=== PATIENT | male | born 1970 | race Caucasian/White ===

== ENCOUNTER 2019-04-03 08:37 | Inpatient (IN) ==
[2019-04-03 09:13] LABS: Eosinophils % 2.3 %
[2019-04-03 09:15] LABS: Basophils # 0.1 K/mcL (0.0-0.2); Basophils % 0.8 %; Eosinophils # 0.3 K/mcL (0.0-0.6); Hematocrit 51.3 % (37.5-50.1); Hemoglobin 14.8 g/dL (12.9-16.9); Immature Granulocytes % 0.5 % (0-4); Lymphocytes # 1.3 K/mcL (0.6-4.6); Mean Corpuscular HGB Conc 28.8 g/dL (31.6-35.5); Mean Corpuscular Hemoglobin 24.3 pg (28.0-33.3); Mean Corpuscular Volume 84.4 fL (83.0-100.0); Mean Platelet Volume 9.1 fL (9.4-12.4); Monocytes # 0.8 K/mcL (0.0-1.3); Monocytes % 7.4 %; Nucleated Red Blood Cells 1.5 /100 WBC (0); Platelet Count 373 K/mcL (140-400); Red Blood Count 6.08 M/mcL (4.19-5.50); Red Cell Distribution Width 18.1 % (11.5-14.5); White Blood Count 11.1 K/mcL (4.3-11.1)
[2019-04-03 09:17] LABS: Neutrophils # 8.6 K/mcL (1.6-8.9)
[2019-04-03] MEDS ORDERED: Nitroglycerin 0.4 MG TAB.SUBL SL PRN (09:28)
[2019-04-03] MEDS ORDERED: Furosemide 40 MG/4 ML VIAL IVP ONE (09:28)
[2019-04-03 09:34] LABS: Calcium 8.6 mg/dL (8.6-10.3); Potassium 4.6 mEq/L (3.5-5.1); Troponin I 0.03 ng/mL (< 0.04)
[2019-04-03 09:36] LABS: Anisocytosis 1+ (Not Present)
[2019-04-03] MEDS ORDERED: Aspirin 81 MG TAB.CHEW PO STA (09:40)
[2019-04-03] MEDS ORDERED: Isovue-370 500 ML BOTTLE IVP ONE (09:45)
[2019-04-03 09:51] LABS: Bilirubin,Urine Negative (Negative); Blood,Urine Negative (Negative); Clarity,Urine Clear (Clear); Color,Urine Yellow (Yellow); Glucose,Urine (UA) Normal (Normal); Ketones,Urine Negative (Negative); Leukocyte Esterase,Urine Negative (Negative); Nitrite,Urine Negative (Negative); Protein,Urine 30 mg/dL (Neg-Trace); Urobilinogen,Urine Normal (Normal)
[2019-04-03] MEDS ORDERED: *HR* Midazolam HCl 5 MG/5 ML VIAL IVP ONE (09:53)
[2019-04-03] MEDS ORDERED: *HR* Etomidate 40 MG/20 ML VIAL IVP ONE (09:53)
[2019-04-03] MEDS ORDERED: *HR* Midazolam HCl 2 MG/2 ML VIAL IV ONE (09:53)
[2019-04-03 09:54] LABS: Bacteria,Urine None Seen per hpf (None-Few); Hyaline Casts,Urine None Seen per lpf (None-Few); RBC,Urine 0-3 per hpf (0-3); Squamous Epithelial Cell,Urine Moderate per lpf (None-Few); WBC,Urine 0-3 per hpf (0-3)
[2019-04-03 10:10] LABS: Magnesium 2.4 mg/dL (1.6-2.6)
[2019-04-03] MEDS ORDERED: Naloxone 0.4 MG/ML INJ IVP PRN (11:52)
[2019-04-03 12:19] LABS: ABG Base Excess 3 mEq/L (-2 to 3); ABG HCO3 37 mEq/L (21-27); ABG Oxygen Saturation 95 % (95-98); ABG PCO2 101 mmHg (35-45); ABG PH 7.17 pH Units (7.32-7.45); ABG PO2 99 mmHg (85-104); ABG TCO2 40 mEq/L (20-26)
[2019-04-03] MEDS: MethylPREDNISolone 40 MG/ML VIAL IVP SCH ×2 (13:03→17:16)
[2019-04-03] MEDS: Azithromycin 250 MG TABLET PO SCH (13:03)
[2019-04-03] MEDS: Ipratropium/Albuterol Neb 3 ML IH SCH ×3 (14:59→23:40)
[2019-04-03 16:16] LABS: ABG Base Excess 1 mEq/L (-2 to 3); ABG HCO3 36 mEq/L (21-27); ABG Oxygen Saturation 90 % (95-98); ABG PCO2 111 mmHg (35-45); ABG PH 7.11 pH Units (7.32-7.45); ABG PO2 83 mmHg (85-104); ABG TCO2 39 mEq/L (20-26)
[2019-04-03] MEDS ORDERED: Furosemide 40 MG/4 ML VIAL IVP SCH (17:00)
[2019-04-03] MEDS ORDERED: Furosemide 80 MG in 0.9 % Sodium Chloride 50 ML IVPB ONE (17:05)
[2019-04-03] MEDS ORDERED: Furosemide 20 MG/2 ML VIAL IVP ONE (17:08)
[2019-04-03] MEDS: *HR* Heparin 5,000 UNIT/ML VIAL SQ SCH (17:15)
[2019-04-03] MEDS: Furosemide 240 MG in 0.9 % Sodium Chloride 96 ML IVC SCH (18:50)
[2019-04-03] MEDS: Budesonide/Formoterol 160/4.5 1 PUFF INH IH SCH (19:48)
[2019-04-03 20:05] LABS: ABG Base Excess 1 mEq/L (-2 to 3); ABG HCO3 37 mEq/L (21-27); ABG Oxygen Saturation 92 % (95-98); ABG PCO2 119 mmHg (35-45); ABG PO2 90 mmHg (85-104); ABG TCO2 41 mEq/L (20-26)
[2019-04-03] MEDS ORDERED: Dexmedetomidine HCl 400 MCG/100 ML MLS IVC ONE (20:27)
[2019-04-03] MEDS: Dexmedetomidine HCl 400 MCG/100 ML MLS IVC SCH (21:07)
[2019-04-03] MEDS: FentaNYL (PF) 1,000 MCG in 0.9 % Sodium Chloride 80 ML IVC SCH (21:08)
[2019-04-03 21:48] LABS: ABG Base Excess 5 mEq/L (-2 to 3); ABG HCO3 37 mEq/L (21-27); ABG Oxygen Saturation 92 % (95-98); ABG PCO2 80 mmHg (35-45); ABG PH 7.27 pH Units (7.32-7.45); ABG PO2 76 mmHg (85-104); ABG TCO2 39 mEq/L (20-26); Blood Gas VT 550 cc
[2019-04-04 00:08] LABS: ABG Base Excess 7 mEq/L (-2 to 3); ABG HCO3 36 mEq/L (21-27); ABG Oxygen Saturation 92 % (95-98); ABG PCO2 62 mmHg (35-45); ABG PH 7.37 pH Units (7.32-7.45); ABG PO2 69 mmHg (85-104); ABG TCO2 37 mEq/L (20-26); Blood Gas VT 550 cc
[2019-04-04] MEDS: MethylPREDNISolone 40 MG/ML VIAL IVP SCH ×4 (00:37→23:41)
[2019-04-04] MEDS: FentaNYL (PF) 1,000 MCG in 0.9 % Sodium Chloride 80 ML IVC SCH (02:48)
[2019-04-04] MEDS: Ipratropium/Albuterol Neb 3 ML IH SCH ×6 (03:35→23:42)
[2019-04-04 04:28] LABS: ABG Base Excess 10 mEq/L (-2 to 3); ABG HCO3 37 mEq/L (21-27); ABG Oxygen Saturation 92 % (95-98); ABG PCO2 57 mmHg (35-45); ABG PH 7.42 pH Units (7.32-7.45); ABG PO2 63 mmHg (85-104); ABG TCO2 39 mEq/L (20-26); Blood Gas VT 550 cc
[2019-04-04] MEDS: Dexmedetomidine HCl 400 MCG/100 ML MLS IVC SCH ×2 (04:42→05:02)
[2019-04-04 05:08] LABS: Basophils % 0.1 %; Hematocrit 49.7 % (37.5-50.1); Lymphocytes % 4.7 %; Mean Corpuscular Hemoglobin 24.1 pg (28.0-33.3); Segmented Neutrophils % 92.6 %
[2019-04-04 05:09] LABS: Hemoglobin 14.5 g/dL (12.9-16.9); Immature Granulocytes % 0.3 % (0-4); Lymphocytes # 0.6 K/mcL (0.6-4.6); Mean Corpuscular HGB Conc 29.2 g/dL (31.6-35.5); Mean Corpuscular Volume 82.7 fL (83.0-100.0); Mean Platelet Volume 9.5 fL (9.4-12.4); Monocytes # 0.3 K/mcL (0.0-1.3); Monocytes % 2.3 %; Neutrophils # 11.1 K/mcL (1.6-8.9); Nucleated Red Blood Cells 0.5 /100 WBC (0); Platelet Count 306 K/mcL (140-400); Red Blood Count 6.01 M/mcL (4.19-5.50); Red Cell Distribution Width 17.7 % (11.5-14.5)
[2019-04-04 05:29] LABS: Calcium 8.7 mg/dL (8.6-10.3); Magnesium 2.2 mg/dL (1.6-2.6); Potassium 4.2 mEq/L (3.5-5.1)
[2019-04-04 05:33] LABS: Anisocytosis 1+ (Not Present)
[2019-04-04 05:34] LABS: Platelet Estimate Normal (Normal)
[2019-04-04] MEDS: Budesonide/Formoterol 160/4.5 1 PUFF INH IH SCH ×2 (07:06→20:08)
[2019-04-04] MEDS: *HR* Heparin 5,000 UNIT/ML VIAL SQ SCH ×2 (07:12→16:06)
[2019-04-04] MEDS: Aspirin 81 MG TAB.CHEW PO SCH (07:22)
[2019-04-04] MEDS: Azithromycin 250 MG TABLET PO SCH (07:22)
[2019-04-04] MEDS ORDERED: Perflutren Lipid Microsphere 1.3 ML in 0.9 % Sodium Chloride 8.7 ML IVP ONE (08:53)
[2019-04-04] MEDS ORDERED: FLUoxetine 20 MG CAPSULE PO SCH (09:00)
[2019-04-04] MEDS ORDERED: NIFEdipine XL (24 HR) 30 MG TAB.ER.24 PO SCH (09:00)
[2019-04-04 09:25] LABS: Estimated Average Glucose 154 mg/dl
[2019-04-04 11:38] LABS: Basophils % 0.1 %; Hematocrit 49.3 % (37.5-50.1); Hemoglobin 14.4 g/dL (12.9-16.9); Immature Granulocytes % 0.6 % (0-4); Lymphocytes # 0.5 K/mcL (0.6-4.6); Lymphocytes % 2.8 %; Mean Corpuscular HGB Conc 29.2 g/dL (31.6-35.5); Mean Corpuscular Hemoglobin 24.2 pg (28.0-33.3); Mean Platelet Volume 8.6 fL (9.4-12.4); Monocytes # 0.4 K/mcL (0.0-1.3); Monocytes % 2.4 %; Neutrophils # 16.1 K/mcL (1.6-8.9); Nucleated Red Blood Cells 0.4 /100 WBC (0); Platelet Count 303 K/mcL (140-400); Red Blood Count 5.94 M/mcL (4.19-5.50); Red Cell Distribution Width 17.9 % (11.5-14.5); Segmented Neutrophils % 94.1 %; White Blood Count 17.1 K/mcL (4.3-11.1)
[2019-04-04 11:57] LABS: Calcium 8.6 mg/dL (8.6-10.3); Potassium 4.6 mEq/L (3.5-5.1)
[2019-04-04 16:24] LABS: ABG Base Excess 12 mEq/L (-2 to 3); ABG HCO3 44 mEq/L (21-27); ABG Oxygen Saturation 91 % (95-98); ABG PCO2 91 mmHg (35-45); ABG PH 7.29 pH Units (7.32-7.45); ABG PO2 74 mmHg (85-104); ABG TCO2 47 mEq/L (20-26)
[2019-04-04] MEDS: Furosemide 240 MG in 0.9 % Sodium Chloride 96 ML IVC SCH (18:50)
[2019-04-05] MEDS: Ipratropium/Albuterol Neb 3 ML IH SCH ×6 (03:49→23:38)
[2019-04-05] MEDS: *HR* Heparin 5,000 UNIT/ML VIAL SQ SCH ×2 (06:24→18:07)
[2019-04-05] MEDS: MethylPREDNISolone 40 MG/ML VIAL IVP SCH ×2 (07:45→18:08)
[2019-04-05] MEDS: Aspirin 81 MG TAB.CHEW PO SCH (07:45)
[2019-04-05] MEDS: Azithromycin 250 MG TABLET PO SCH (07:46)
[2019-04-05 07:48] LABS: ABG Base Excess 17 mEq/L (-2 to 3); ABG HCO3 49 mEq/L (21-27); ABG Oxygen Saturation 94 % (95-98); ABG PCO2 84 mmHg (35-45); ABG PH 7.37 pH Units (7.32-7.45); ABG PO2 78 mmHg (85-104); ABG TCO2 > 50 mEq/L (20-26); Blood Gas Modality BiLevel
[2019-04-05] MEDS: Budesonide/Formoterol 160/4.5 1 PUFF INH IH SCH ×2 (07:50→19:45)
[2019-04-05 08:25] LABS: Basophils % 0.1 %; Eosinophils % 0.1 %; Hematocrit 50.7 % (37.5-50.1); Hemoglobin 14.5 g/dL (12.9-16.9); Immature Granulocytes % 0.8 % (0-4); Immature Platelets 1.8 % (1.1-6.1); Lymphocytes # 0.7 K/mcL (0.6-4.6); Lymphocytes % 4.4 %; Mean Corpuscular HGB Conc 28.6 g/dL (31.6-35.5); Mean Corpuscular Hemoglobin 24.2 pg (28.0-33.3); Mean Corpuscular Volume 84.8 fL (83.0-100.0); Mean Platelet Volume 8.8 fL (9.4-12.4); Monocytes # 0.6 K/mcL (0.0-1.3); Monocytes % 3.6 %; Nucleated Red Blood Cells 0.3 /100 WBC (0); Platelet Count 273 K/mcL (140-400); Red Blood Count 5.98 M/mcL (4.19-5.50); Red Cell Distribution Width 17.3 % (11.5-14.5); White Blood Count 15.4 K/mcL (4.3-11.1)
[2019-04-05 08:53] LABS: Calcium 8.4 mg/dL (8.6-10.3); Potassium 4.1 mEq/L (3.5-5.1)
[2019-04-05 08:57] LABS: Platelet Estimate Normal (Normal)
[2019-04-05 08:58] LABS: Hypochromasia Present (Not Present)
[2019-04-05] MEDS ORDERED: Nitroglycerin 0.4 MG TAB.SUBL SL PRN (10:06)
[2019-04-05] MEDS ORDERED: Naloxone 0.4 MG/ML INJ IVP PRN (10:06)
[2019-04-05] MEDS ORDERED: Furosemide 240 MG in 0.9 % Sodium Chloride 96 ML IVC SCH (10:06)
[2019-04-05 17:18] LABS: Calcium 8.7 mg/dL (8.6-10.3); Potassium 4.2 mEq/L (3.5-5.1)
[2019-04-05] MEDS: Furosemide 40 MG/4 ML VIAL IVP SCH (18:08)
[2019-04-06] MEDS: MethylPREDNISolone 40 MG/ML VIAL IVP SCH ×3 (00:37→17:21)
[2019-04-06] MEDS: Ipratropium/Albuterol Neb 3 ML IH SCH ×5 (03:50→20:05)
[2019-04-06 04:56] LABS: Basophils % 0.1 %; Immature Granulocytes % 0.5 % (0-4); Mean Platelet Volume 8.8 fL (9.4-12.4)
[2019-04-06 04:57] LABS: Hemoglobin 14.5 g/dL (12.9-16.9); Lymphocytes # 0.5 K/mcL (0.6-4.6); Lymphocytes % 3.7 %; Mean Corpuscular HGB Conc 28.4 g/dL (31.6-35.5); Mean Corpuscular Volume 84.6 fL (83.0-100.0); Monocytes # 0.3 K/mcL (0.0-1.3); Monocytes % 2.1 %; Neutrophils # 13.1 K/mcL (1.6-8.9); Nucleated Red Blood Cells 0.2 /100 WBC (0); Platelet Count 272 K/mcL (140-400); Red Blood Count 6.03 M/mcL (4.19-5.50); Red Cell Distribution Width 17.5 % (11.5-14.5); Segmented Neutrophils % 93.6 %
[2019-04-06] MEDS: *HR* Heparin 5,000 UNIT/ML VIAL SQ SCH ×2 (05:02→17:21)
[2019-04-06 05:24] LABS: Anisocytosis 1+ (Not Present); Platelet Estimate Normal (Normal)
[2019-04-06 05:25] LABS: Hypochromasia Present (Not Present); Toxic Granulation Present (Not Present)
[2019-04-06 05:35] LABS: Calcium 8.7 mg/dL (8.6-10.3); Potassium 4.2 mEq/L (3.5-5.1)
[2019-04-06] MEDS: Budesonide/Formoterol 160/4.5 1 PUFF INH IH SCH ×2 (07:32→20:04)
[2019-04-06] MEDS: Aspirin 81 MG TAB.CHEW PO SCH (08:44)
[2019-04-06] MEDS: Furosemide 40 MG/4 ML VIAL IVP SCH ×2 (08:44→17:20)
[2019-04-06] MEDS ORDERED: Azithromycin 250 MG TABLET PO SCH (09:00)
[2019-04-06 10:20] LABS: BUN/Creatinine Ratio 27 (6-26); Blood Urea Nitrogen 44 mg/dL (6-20); Calcium 8.8 mg/dL (8.6-10.3); Carbon Dioxide > 45 mEq/L (23-29); Chloride 91 mEq/L (98-107); Glucose 145 mg/dL (70-105); Osmolality,Calculated 306 (280-300); Sodium 141 mEq/L (136-145); eGFR For African Americans 54 (> 60); eGFR For Non-African Americans 45 (> 60)
[2019-04-07] MEDS: MethylPREDNISolone 40 MG/ML VIAL IVP SCH ×4 (00:14→23:23)
[2019-04-07] MEDS: Ipratropium/Albuterol Neb 3 ML IH SCH ×7 (00:48→23:04)
[2019-04-07] MEDS: *HR* Heparin 5,000 UNIT/ML VIAL SQ SCH ×2 (05:41→17:51)
[2019-04-07] MEDS: Budesonide/Formoterol 160/4.5 1 PUFF INH IH SCH ×2 (07:41→19:35)
[2019-04-07 08:23] LABS: Basophils % 0.1 %; Hematocrit 52.2 % (37.5-50.1); Immature Granulocytes % 0.6 % (0-4); Monocytes % 5.1 %; Nucleated Red Blood Cells 0.2 /100 WBC (0)
[2019-04-07 08:24] LABS: Eosinophils % 0.1 %; Hemoglobin 14.7 g/dL (12.9-16.9); Lymphocytes # 0.8 K/mcL (0.6-4.6); Mean Corpuscular HGB Conc 28.2 g/dL (31.6-35.5); Mean Corpuscular Hemoglobin 24.1 pg (28.0-33.3); Mean Corpuscular Volume 85.7 fL (83.0-100.0); Monocytes # 0.7 K/mcL (0.0-1.3); Neutrophils # 11.2 K/mcL (1.6-8.9); Platelet Count 238 K/mcL (140-400); Red Blood Count 6.09 M/mcL (4.19-5.50); Red Cell Distribution Width 17.6 % (11.5-14.5); Segmented Neutrophils % 88.1 %; White Blood Count 12.7 K/mcL (4.3-11.1)
[2019-04-07 08:46] LABS: BUN/Creatinine Ratio 30 (6-26); Blood Urea Nitrogen 42 mg/dL (6-20); Calcium 8.9 mg/dL (8.6-10.3); Carbon Dioxide 44 mEq/L (23-29); Chloride 91 mEq/L (98-107); Glucose 143 mg/dL (70-105); Osmolality,Calculated 303 (280-300); Potassium 4.2 mEq/L (3.5-5.1); Sodium 140 mEq/L (136-145); eGFR For African Americans > 60 (> 60); eGFR For Non-African Americans 53 (> 60)
[2019-04-07 08:51] LABS: Anisocytosis 1+ (Not Present); Hypochromasia Present (Not Present); Platelet Estimate Normal (Normal); Toxic Granulation Present (Not Present)
[2019-04-07] MEDS: Aspirin 81 MG TAB.CHEW PO SCH (09:07)
[2019-04-07] MEDS: Furosemide 40 MG/4 ML VIAL IVP SCH (09:07)
[2019-04-07 13:03] LABS: ABG Base Excess 16 mEq/L (-2 to 3); ABG HCO3 46 mEq/L (21-27); ABG Oxygen Saturation 87 % (95-98); ABG PCO2 72 mmHg (35-45); ABG PH 7.41 pH Units (7.32-7.45); ABG PO2 56 mmHg (85-104); ABG TCO2 48 mEq/L (20-26)
[2019-04-07] MEDS: Furosemide 40 MG TABLET PO SCH (16:11)
[2019-04-08] MEDS: Ipratropium/Albuterol Neb 3 ML IH SCH ×5 (03:29→20:21)
[2019-04-08] MEDS: *HR* Heparin 5,000 UNIT/ML VIAL SQ SCH ×3 (05:28→21:38)
[2019-04-08 05:40] LABS: Basophils % 0.1 %; Hematocrit 54.9 % (37.5-50.1); Hemoglobin 15.7 g/dL (12.9-16.9); Immature Granulocytes % 0.5 % (0-4); Lymphocytes # 0.7 K/mcL (0.6-4.6); Lymphocytes % 4.9 %; Mean Corpuscular HGB Conc 28.6 g/dL (31.6-35.5); Mean Corpuscular Hemoglobin 23.8 pg (28.0-33.3); Mean Corpuscular Volume 83.3 fL (83.0-100.0); Mean Platelet Volume 8.4 fL (9.4-12.4); Monocytes # 0.6 K/mcL (0.0-1.3); Monocytes % 4.2 %; Platelet Count 202 K/mcL (140-400); Red Blood Count 6.59 M/mcL (4.19-5.50); Red Cell Distribution Width 17.2 % (11.5-14.5); Segmented Neutrophils % 90.3 %; White Blood Count 13.3 K/mcL (4.3-11.1)
[2019-04-08 06:08] LABS: BUN/Creatinine Ratio 29 (6-26); Blood Urea Nitrogen 44 mg/dL (6-20); Carbon Dioxide > 45 mEq/L (23-29); Chloride 89 mEq/L (98-107); Glucose 163 mg/dL (70-105); Osmolality,Calculated 305 (280-300); Potassium 4.1 mEq/L (3.5-5.1); Sodium 140 mEq/L (136-145); eGFR For African Americans > 60 (> 60); eGFR For Non-African Americans 50 (> 60)
[2019-04-08 06:11] LABS: Hypochromasia Present (Not Present); Toxic Granulation Present (Not Present)
[2019-04-08 06:12] LABS: Platelet Estimate Normal (Normal)
[2019-04-08] MEDS: Budesonide/Formoterol 160/4.5 1 PUFF INH IH SCH ×2 (07:32→20:22)
[2019-04-08] MEDS: Furosemide 40 MG TABLET PO SCH ×2 (08:05→15:55)
[2019-04-08] MEDS: Aspirin 81 MG TAB.CHEW PO SCH (08:05)
[2019-04-08] MEDS: predniSONE 20 MG TABLET PO SCH (08:05)
[2019-04-08 15:43] LABS: ABG Base Excess 18 mEq/L (-2 to 3); ABG HCO3 50 mEq/L (21-27); ABG Oxygen Saturation 91 % (95-98); ABG PCO2 79 mmHg (35-45); ABG PH 7.41 pH Units (7.32-7.45); ABG PO2 66 mmHg (85-104); ABG TCO2 > 50 mEq/L (20-26)
[2019-04-09] MEDS: Ipratropium/Albuterol Neb 3 ML IH SCH ×7 (00:01→23:14)
[2019-04-09] MEDS: *HR* Heparin 5,000 UNIT/ML VIAL SQ SCH ×3 (05:13→22:27)
[2019-04-09 06:02] LABS: Basophils % 0.1 %; Eosinophils # 0.1 K/mcL (0.0-0.6); Eosinophils % 0.5 %; Hematocrit 54.9 % (37.5-50.1); Immature Granulocytes % 0.7 % (0-4); Lymphocytes # 1.4 K/mcL (0.6-4.6); Lymphocytes % 9.3 %; Mean Corpuscular HGB Conc 29.1 g/dL (31.6-35.5); Mean Corpuscular Volume 82.3 fL (83.0-100.0); Mean Platelet Volume 9.2 fL (9.4-12.4); Monocytes # 1.3 K/mcL (0.0-1.3); Monocytes % 8.3 %; Neutrophils # 12.4 K/mcL (1.6-8.9); Platelet Count 164 K/mcL (140-400); Red Blood Count 6.67 M/mcL (4.19-5.50); Red Cell Distribution Width 17.5 % (11.5-14.5); Segmented Neutrophils % 81.1 %; White Blood Count 15.3 K/mcL (4.3-11.1)
[2019-04-09 06:31] LABS: BUN/Creatinine Ratio 33 (6-26); Blood Urea Nitrogen 43 mg/dL (6-20); Calcium 8.6 mg/dL (8.6-10.3); Carbon Dioxide 41 mEq/L (23-29); Chloride 94 mEq/L (98-107); Glucose 120 mg/dL (70-105); Osmolality,Calculated 304 (280-300); Potassium 4.4 mEq/L (3.5-5.1); Sodium 141 mEq/L (136-145); eGFR For African Americans > 60 (> 60); eGFR For Non-African Americans 60 (> 60)
[2019-04-09] MEDS: Budesonide/Formoterol 160/4.5 1 PUFF INH IH SCH ×2 (07:18→20:10)
[2019-04-09] MEDS: Furosemide 40 MG TABLET PO SCH (07:56)
[2019-04-09] MEDS: predniSONE 20 MG TABLET PO SCH (07:56)
[2019-04-09] MEDS: Aspirin 81 MG TAB.CHEW PO SCH (07:56)
[2019-04-09] MEDS ORDERED: Furosemide 40 MG/4 ML VIAL IVP SCH (17:00)
[2019-04-10] MEDS: Ipratropium/Albuterol Neb 3 ML IH SCH ×6 (03:48→23:19)
[2019-04-10] MEDS: *HR* Heparin 5,000 UNIT/ML VIAL SQ SCH ×3 (04:58→22:46)
[2019-04-10 06:02] LABS: Basophils % 0.1 %
[2019-04-10 06:04] LABS: Eosinophils # 0.3 K/mcL (0.0-0.6); Eosinophils % 1.8 %; Hematocrit 53.1 % (37.5-50.1); Hemoglobin 14.7 g/dL (12.9-16.9); Immature Granulocytes % 0.4 % (0-4); Lymphocytes # 2.2 K/mcL (0.6-4.6); Lymphocytes % 14.8 %; Mean Corpuscular HGB Conc 27.7 g/dL (31.6-35.5); Mean Corpuscular Hemoglobin 24.1 pg (28.0-33.3); Mean Corpuscular Volume 87.2 fL (83.0-100.0); Mean Platelet Volume 9.8 fL (9.4-12.4); Monocytes # 1.4 K/mcL (0.0-1.3); Monocytes % 9.3 %; Platelet Count 173 K/mcL (140-400); Red Blood Count 6.09 M/mcL (4.19-5.50); Red Cell Distribution Width 17.4 % (11.5-14.5); Segmented Neutrophils % 73.6 %
[2019-04-10 06:34] LABS: Calcium 8.7 mg/dL (8.6-10.3); Potassium 3.7 mEq/L (3.5-5.1)
[2019-04-10 07:13] LABS: Hypochromasia Present (Not Present); Platelet Estimate Normal (Normal)
[2019-04-10] MEDS: Budesonide/Formoterol 160/4.5 1 PUFF INH IH SCH ×2 (07:18→19:58)
[2019-04-10] MEDS: Aspirin 81 MG TAB.CHEW PO SCH (08:22)
[2019-04-10] MEDS ORDERED: Dextrose Gel 15 GM/37.5 ML TUBE PO PRN ×2 (12:31)
[2019-04-10] MEDS ORDERED: *HR* Dextrose 50 % in Water (Syg) 50 ML SYRINGE IVP PRN (12:31)
[2019-04-10] MEDS ORDERED: D5% in Water 1,000 ML IVC PRN (12:31)
[2019-04-10] MEDS: Insulin LISPRO 300 UNITS/3 ML VIAL SQ SCH (17:47)
[2019-04-10] MEDS: Insulin DETEMIR 100 UNIT/ML X5UNITS SQ SCH (22:46)
[2019-04-11] MEDS: Ipratropium/Albuterol Neb 3 ML IH SCH ×3 (03:50→11:15)
[2019-04-11] MEDS: *HR* Heparin 5,000 UNIT/ML VIAL SQ SCH (05:47)
[2019-04-11 06:24] LABS: Basophils % 0.1 %; Eosinophils # 0.5 K/mcL (0.0-0.6); Hematocrit 54.3 % (37.5-50.1); Hemoglobin 15.4 g/dL (12.9-16.9); Immature Granulocytes % 0.6 % (0-4); Lymphocytes # 2.5 K/mcL (0.6-4.6); Lymphocytes % 21.3 %; Mean Corpuscular HGB Conc 28.4 g/dL (31.6-35.5); Mean Corpuscular Hemoglobin 24.2 pg (28.0-33.3); Mean Corpuscular Volume 85.2 fL (83.0-100.0); Mean Platelet Volume 10.7 fL (9.4-12.4); Monocytes % 8.6 %; Neutrophils # 7.6 K/mcL (1.6-8.9); Platelet Count 171 K/mcL (140-400); Red Blood Count 6.37 M/mcL (4.19-5.50); Red Cell Distribution Width 17.8 % (11.5-14.5); Segmented Neutrophils % 65.4 %; White Blood Count 11.6 K/mcL (4.3-11.1)
[2019-04-11 06:41] LABS: BUN/Creatinine Ratio 27 (6-26); Blood Urea Nitrogen 41 mg/dL (6-20); Calcium 8.8 mg/dL (8.6-10.3); Carbon Dioxide 39 mEq/L (23-29); Chloride 94 mEq/L (98-107); Glucose 88 mg/dL (70-105); Osmolality,Calculated 300 (280-300); Potassium 3.4 mEq/L (3.5-5.1); Sodium 140 mEq/L (136-145); eGFR For African Americans > 60 (> 60); eGFR For Non-African Americans 50 (> 60)
[2019-04-11 07:00] VITALS: BP 99/66
[2019-04-11] MEDS: Budesonide/Formoterol 160/4.5 1 PUFF INH IH SCH (07:16)
[2019-04-11] MEDS: Insulin LISPRO 300 UNITS/3 ML VIAL SQ SCH ×2 (07:48→12:06)
[2019-04-11] MEDS: Insulin DETEMIR 100 UNIT/ML X5UNITS SQ SCH (07:52)
[2019-04-11] MEDS: Aspirin 81 MG TAB.CHEW PO SCH (07:52)
[2019-04-11 08:11] LABS: Anisocytosis 1+ (Not Present); Platelet Estimate Normal (Normal)
[2019-04-11 08:13] LABS: Hypochromasia Present (Not Present); Microcytosis Present (Not Present)
[2019-04-11] MEDS ORDERED: FLU Vac QV 19-20 (6Month+)/PF 0.5 ML SYRINGE IM ONE (10:34)
== END 2019-04-11 13:14 | disposition home or self-care (01) | DRG 291 ==
LOC: 2ANU 08:37 → EMEROOARM 08:37 → 2ANU 12:43 → SUATTDRO 12:52 → ICNU 17:56 → 3ANU 04-05 14:54 → 2ANU 04-06 10:18
PROVIDERS: ADMIT Student in an Organized Health Care Education/Training Program; ATTEND Internal Medicine